=== PATIENT | female | born 1990 | race Caucasian/White ===

== ENCOUNTER 2016-11-01 11:55 | Emergency (ER) | payer OTHER, SELFPAY ==
[~2016-11-01] VITALS: Ht 165.1 cm; Wt 164.3 kg
[2016-11-01] MEDS ORDERED: NS 1,000 ML IV ONE (14:30)
[2016-11-01 15:16] LABS: BASO % 0.4 % (0.0-1.0); EOS # 0.1 10^3/uL (0.0-0.50); EOS % 1.4 % (0.0-3.0); IMMATURE GRANULOCYTE % 0.4 % (0-0); LYMPH # 2.6 10^3/uL (1.5-6.5); LYMPH % 25.6 % (24.0-44.0); MEAN CORPUSCULAR HGB CONC 32.4 g/dl (32.0-36.5); MEAN CORPUSCULAR VOLUME 86.5 fl (80.0-96.0); MONO # 0.4 10^3/uL (0.0-0.8); NEUTROPHILS # 6.9 10^3/uL (1.8-7.7); NEUTROPHILS % 68.2 % (36.0-66.0); PLATELET COUNT, AUTOMATED 348 10^3/uL (150-450); RED CELL DISTRIBUTION WIDTH 15.1 % (11.5-14.5); WHITE BLOOD COUNT 10.1 10^3/uL (4.0-10.0)
--- NOTE | 2016-11-01 15:21 | REP ---
Emergency pelvic ultrasound with transabdominal, endovaginal and Doppler ultrasound assessment: The patient reportedly has polycystic ovarian syndrome and complains of heavy vaginal bleeding for approximate 1 month. There are no comparison studies. The uterus is anteverted and normal size measuring 8.4 x 4.2 x 5.5 cm. The endometrium is not thickened measuring 4.6 mm. No uterine fibroids or masses are identified. The ovaries are normal size. Right ovary measures 3.6 x 2.3 x 2.5 cm. The left ovary measures 3.1 x 2.0 x 2.7 cm. There are multiple small follicles in each ovary. There is no dominant ovarian mass or cyst. There is vascular flow in both ovaries with the Doppler resistive index of the intraparenchymal arteries on the right measuring 0.63 on the left 0.55. There is no free fluid in the pelvis. Impression: Essentially normal pelvic ultrasound. Signed by Hiram Agudelo MD 11/01/2016 03:13 P
[2016-11-01 16:57] LABS: ANION GAP 8 MEQ/L (8-16); BLOOD UREA NITROGEN 13 MG/DL (7-18); CALCIUM LEVEL 8.8 MG/DL (8.5-10.1); CARBON DIOXIDE LEVEL 27 MEQ/L (21-32); CHLORIDE LEVEL 105 MEQ/L (98-107); CREATININE FOR GFR 0.61 MG/DL (0.55-1.02); GLOMERULAR FILTRATION RATE > 60.0 (>60); GLUCOSE, FASTING 77 MG/DL (70-105); POTASSIUM SERUM 4.1 MEQ/L (3.5-5.1); SODIUM LEVEL 140 MEQ/L (136-145)
[2016-11-01 17:04] VITALS: BP 140/85
== END 2016-11-01 17:12 | disposition home or self-care (01) ==
LOC: M ED 11:55
DX: N92.0 Excessive and frequent menstruation with regular cycle (principal); E28.2 Polycystic ovarian syndrome; F41.9 Anxiety disorder, unspecified; Z84.2 Family history of other diseases of the genitourinary system; Z88.8 Allergy status to other drugs, medicaments and biological substances

== ENCOUNTER → 2017-05-30 | Outpatient (CLI) | payer OTHER | LOC: M WUC 13:43 | DX: J20.9 Acute bronchitis, unspecified (principal) | CPT/HCPCS: 71046 ==

== ENCOUNTER → 2017-10-10 | Outpatient (CLI) | payer OTHER | LOC: M ADAMS 11:53 | DX: S90.32XA Contusion of left foot, initial encounter (principal); X58.XXXA Exposure to other specified factors, initial encounter; Y92.59 Other trade areas as the place of occurrence of the external cause | CPT/HCPCS: 73630 ==

== ENCOUNTER → 2018-04-24 | Outpatient (CLI) | payer OTHER ==
[~2018-04-24] MED LIST: FURO20TA2; IBUP40TA PO; LEVONOR/ETHI
--- NOTE | 2018-04-25 04:13 | REP ---
Clinical: Right knee pain Technique: AP, lateral, bilateral oblique and sunrise views. Findings: The osseous structures and joint spaces are intact and normal. There is no evidence for acute fracture or dislocation. No joint effusion is appreciated. Surrounding soft tissues are unremarkable. No subcutaneous emphysema or radiodense foreign body. Impression: Normal examination. No acute fracture or dislocation. Electronically Signed by Cole Galicia MD 04/25/2018 04:05 A
== END ==
LOC: M ADAMS 12:04
PROVIDERS: ATTEND Physician Assistant Medical
DX: M25.561 Pain in right knee (principal)

== ENCOUNTER 2018-04-26 10:39 | Emergency (ER) | payer OTHER ==
[~2018-04-26] VITALS: Ht 170.2 cm; Wt 154.5 kg
[2018-04-26 10:40] VITALS: BP 127/80
[2018-04-26] MEDS ORDERED: LEVONOR/ETHI (10:48)
[2018-04-26] MEDS ORDERED: IBUP40TA PO (10:48)
[2018-04-26] MEDS ORDERED: FURO20TA2 (10:48)
== END 2018-04-26 11:28 | disposition home or self-care (01) ==
LOC: M ED 10:39
DX: S83.91XA Sprain of unspecified site of right knee, initial encounter (principal); X50.1XXA Overexertion from prolonged static or awkward postures, initial encounter; Y92.098 Other place in other non-institutional residence as the place of occurrence of the external cause; Z88.8 Allergy status to other drugs, medicaments and biological substances; Z79.899 Other long term (current) drug therapy

== ENCOUNTER 2018-10-01 21:17 | Emergency (ER) | payer OTHER ==
[~2018-10-01] VITALS: Ht 170.2 cm; Wt 152.2 kg
[2018-10-02 01:13] VITALS: BP 167/97
== END 2018-10-02 01:14 | disposition home or self-care (01) ==
LOC: M ED 21:17
DX: S10.96XA Insect bite of unspecified part of neck, initial encounter (principal); W57.XXXA Bitten or stung by nonvenomous insect and other nonvenomous arthropods, initial encounter; Y92.9 Unspecified place or not applicable; Y93.9 Activity, unspecified; Y99.9 Unspecified external cause status; E28.2 Polycystic ovarian syndrome; G43.909 Migraine, unspecified, not intractable, without status migrainosus; Z79.899 Other long term (current) drug therapy; Z88.8 Allergy status to other drugs, medicaments and biological substances

== ENCOUNTER → 2019-06-13 | Outpatient (CLI) | payer OTHER ==
[~2019-06-13] MED LIST changes: +ISOVUE-370 76% 100ML VIAL As Ordered ONE
--- NOTE | 2019-06-13 15:00 | REP ---
CT BRAIN WITHOUT AND WITH IV CONTRAST: HISTORY: Headache syndrome. Rule out mass. Comparison head CT study June 12, 2015. CT CONTRAST DOSE: 75 mL of intravenous Isovue [address] FINDINGS: Digital preliminary emery grinder radiograph is unremarkable. Bone window settings demonstrate an intact bony calvarium. Visualized paranasal sinuses are clear. No intraorbital abnormalities appreciated. On soft tissue window settings, odonnell-white differentiation pattern is normal above and below the tentorium. Lateral, third, fourth ventricles are normal in size and position. There is no evidence of intracranial mass lesion. Contrast enhanced study shows enhancement in normal vasculature. No abnormal intracranial contrast enhancement is seen. There is no evidence of infarct, hemorrhage, mass, extra-axial fluid collection, or midline shift. IMPRESSION: Negative CT study brain without and with IV contrast. Electronically Signed by Job Rice MD 06/13/2019 03:34 P
== END ==
LOC: M RAD 13:26
PROVIDERS: ATTEND Nurse Practitioner Family
DX: R51 Headache (principal)
CPT/HCPCS: 70470; Q9967

== ENCOUNTER 2020-08-25 12:54 | Emergency (ER) | payer OTHER ==
[~2020-08-25] VITALS: Ht 170.2 cm; Wt 155.0 kg
[~2020-08-25 12:54] MED LIST changes: +IBUP1TAB5 PO; -IBUP40TA PO; -ISOVUE-370 76% 100ML VIAL As Ordered ONE
[2020-08-25] MEDS ORDERED: LEVO0.1T (13:07)
[2020-08-25] MEDS ORDERED: ACET50CA PO (13:07)
[2020-08-25] MEDS ORDERED: CYCL5TAB PO (13:08)
[2020-08-25] MEDS ORDERED: SUMA25TA3 PO (13:08)
[2020-08-25] MEDS ORDERED: PROP20TA72 PO (16:31)
[2020-08-25 17:18] LABS: BASO % 0.3 % (0.0-1.0); EOS # 0.2 10^3/uL (0.0-0.5); HEMATOCRIT 44.3 % (36.0-47.0); LYMPH # 2.4 10^3/uL (1.5-5.0); LYMPH % 19.6 % (24.0-44.0); MEAN CORPUSCULAR HEMOGLOBIN 27.4 pg (27.0-33.0); MEAN CORPUSCULAR HGB CONC 31.6 g/dl (32.0-36.5); MEAN CORPUSCULAR VOLUME 86.7 fl (80.0-96.0); MONO # 0.6 10^3/uL (0.0-0.8); MONO % 4.6 % (2.0-8.0); NEUTROPHILS % 73.2 % (36.0-66.0); PLATELET COUNT, AUTOMATED 404 10^3/uL (150-450); RED BLOOD COUNT 5.11 10^6/uL (4.00-5.40); WHITE BLOOD COUNT 12.3 10^3/uL (4.0-10.0)
--- NOTE | 2020-08-25 17:43 | REP ---
INDICATION: ruq pain, nausea. COMPARISON: None. TECHNIQUE: Standard right upper quadrant sonographic techniques were utilized. FINDINGS: The liver is shows a homogeneous hyperechogenicity consistent with fatty infiltration has a vertical diameter of 21.8 cm in the midclavicular line indicating hepatomegaly. Contours are smooth the left hepatic lobe is not grossly enlarged. Gallbladder shows wall thickness of 4 mm there is no definite shadowing stones or sludge. No pericholecystic fluid is seen. There is no mass. No sonographic Kern sign was described. Common duct is 4 mm without a stone. Limited views of the pancreas show no ductal dilatation in the region of the pancreatic head. Pancreas is slightly echogenic. Some of the pancreatic tail is obscured by gas shadowing. The right kidney is 10.8 x 6.3 x 4.4 cm. No hydronephrosis. No generalized ascites in the upper abdomen. IMPRESSION: Fatty infiltration of the liver with hepatomegaly but no biliary dilatation or ascites. No hepatic mass. Gallbladder without calcified stone, mass or pericholecystic fluid wall is slightly thickened at 4 mm. No sonographic Kern sign. Common duct 4 mm without a filling defect. Pancreatic head and body without acute finding there are slightly hyperechoic. The tail is partially obscured by gas shadowing. Right kidney grossly unremarkable <Electronically signed by Brennna Sargent > 08/25/20 [id number]
[2020-08-25 17:49] LABS: ALBUMIN 3.5 GM/DL (3.2-5.2); ALT/SGPT 28 U/L (12-78); BILIRUBIN,DIRECT 0.1 MG/DL (0.0-0.2); BILIRUBIN,TOTAL 0.4 MG/DL (0.2-1.0); BLOOD UREA NITROGEN 14 MG/DL (7-18); CARBON DIOXIDE LEVEL 26 MEQ/L (21-32); CHLORIDE LEVEL 108 MEQ/L (98-107); CREATININE FOR GFR 0.65 MG/DL (0.55-1.30); GLOMERULAR FILTRATION RATE > 60.0 (>60); GLUCOSE, FASTING 83 MG/DL (70-100); LIPASE 87 U/L (73-393); POTASSIUM SERUM 4.2 MEQ/L (3.5-5.1); SODIUM LEVEL 139 MEQ/L (136-145); TOTAL PROTEIN 7.4 GM/DL (6.4-8.2)
--- NOTE | 2020-08-25 17:50 | REP ---
INDICATION: nausea, hx PCOS, r pelvic pain. COMPARISON: 11/01/2016 TECHNIQUE: Transabdominal and endovaginal probe exams are provided. Color flow and Doppler imaging of the adnexa were also performed. FINDINGS: Bladder partially filled the at 6 x 6.9 x 3 cm. Uterus is anteverted in it measures 7.5 x 3.7 x 4.3 cm. There is a central endometrial echogenic stripe with a thickness of 7 mm. No fluid in the endometrial cavity or endocervical canal. No uterine mass or contour abnormality suggested. There is no fluid in the cul-de-sac. The left ovary is 2.7 x 1.9 x 2.9 cm on the ED probe as a few subcentimeter follicles. Color flow is seen within it Doppler tracing shows resistive index 0.44, normal. No adjacent fluid or mass to the left ovary. The right ovary is larger at 4.3 x 2.2 x 1.8 cm. It also shows color flow within it and Doppler tracing with resistive index of 0.38. Within that right ovary is a complex hypoechoic focus 1.6 x 1.2 x 0.8 cm there is some internal echoes but no definite color flow within. Septation is suggested within it. IMPRESSION: 1. Complex ovarian follicle on the right 1.6 x 1.2 x 0.8 cm. It has some septations and internal echoes and may reflect hemorrhagic follicle or resolving hemorrhagic cyst. There is color flow in the ovary but not definitely in this focus. No torsion. 2. Left ovary, uterus, endometrial stripe and the cul-de-sac were unremarkable. There is no pelvic free fluid. <Electronically signed by Brennan Sargent > 08/25/20 [id number]
[2020-08-25 18:25] VITALS: BP 133/93
== END 2020-08-25 18:26 | disposition home or self-care (01) ==
LOC: M ED 12:54
DX: N83.01 Follicular cyst of right ovary (principal); R11.0 Nausea; K76.0 Fatty (change of) liver, not elsewhere classified; G43.909 Migraine, unspecified, not intractable, without status migrainosus; E28.2 Polycystic ovarian syndrome; Z87.440 Personal history of urinary (tract) infections; R60.0 Localized edema; Z79.899 Other long term (current) drug therapy

== ENCOUNTER 2022-10-18 11:53 | Day surgery (SDC) | payer OTHER ==
[~2022-10-18] VITALS: Ht 167.6 cm; Wt 159.2 kg
[~2022-10-18 11:53] MED LIST changes: +ACET50CA PO; +CETI-24 PO; +CYCL5TAB PO; +LEVO0.1T; +NS 1,000 ML IV ONE; +OMEP-173 PO; +PROP20TA72 PO; +SEMA1PEN2; +SUMA25TA3 PO; +[UNRECOGNIZED DRUG - OTHER] PO
[2022-10-18 12:12] VITALS: TEMP 96.1
[2022-10-18] MEDS ORDERED: propofoL 200 MG/20 ML VIAL As Ordered ONE ×4 (12:58→13:19)
[2022-10-18] MEDS ORDERED: LIDOCAINE 2% 100MG/5ML SDV (FOR ANES.) As Ordered ONE (12:58)
[2022-10-18 13:49] VITALS: BP 105/53; O2SAT 100
== END 2022-10-18 13:56 | disposition home or self-care (01) ==
LOC: M OPP 11:53
PROVIDERS: ATTEND Internal Medicine Gastroenterology
DX: K64.8 Other hemorrhoids (principal); K20.90 Esophagitis, unspecified without bleeding; E78.5 Hyperlipidemia, unspecified; K21.9 Gastro-esophageal reflux disease without esophagitis; M19.90 Unspecified osteoarthritis, unspecified site; F41.9 Anxiety disorder, unspecified; G43.909 Migraine, unspecified, not intractable, without status migrainosus; J45.909 Unspecified asthma, uncomplicated; E28.2 Polycystic ovarian syndrome; G93.2 Benign intracranial hypertension; E66.9 Obesity, unspecified; E83.119 Hemochromatosis, unspecified; Z88.8 Allergy status to other drugs, medicaments and biological substances; Z91.09 Other allergy status, other than to drugs and biological substances; Z79.899 Other long term (current) drug therapy; Z83.3 Family history of diabetes mellitus; Z82.49 Family history of ischemic heart disease and other diseases of the circulatory system; Z80.3 Family history of malignant neoplasm of breast; Z80.1 Family history of malignant neoplasm of trachea, bronchus and lung; Z80.42 Family history of malignant neoplasm of prostate; Z83.6 Family history of other diseases of the respiratory system

== ENCOUNTER → 2023-05-03 | Outpatient (CLI) | payer OTHER ==
[~2023-05-03] MED LIST changes: -NS 1,000 ML IV ONE
== END ==
LOC: M SLEEP 20:00
PROVIDERS: ATTEND Nurse Practitioner Family
DX: R40.0 Somnolence (principal)

== ENCOUNTER 2024-10-02 09:35 | Emergency (ER) | payer OTHER ==
[~2024-10-02] VITALS: Ht 165.1 cm; Wt 177.1 kg
[2024-10-02 09:37] VITALS: BP 140/86; TEMP 98; O2SAT 100
== END 2024-10-02 09:56 | disposition left against medical advice (07) ==
LOC: M ED 09:35
DX: Z53.21 Procedure and treatment not carried out due to patient leaving prior to being seen by health care provider (principal)

== ENCOUNTER → 2024-10-02 | Outpatient (CLI) | payer OTHER ==
[~2024-10-02] MED LIST changes: -CYCL5TAB PO; +CYCL5TAB4 PO
== END ==
LOC: M RAD 10:22
PROVIDERS: ATTEND Physician Assistant
DX: R22.41 Localized swelling, mass and lump, right lower limb (principal)

== ENCOUNTER 2024-11-02 11:07 | Emergency (ER) | payer OTHER ==
[~2024-11-02] VITALS: Ht 165.1 cm; Wt 172.3 kg
[2024-11-02 12:49] VITALS: BP 119/74; TEMP 97.1; O2SAT 96
== END 2024-11-02 12:51 | disposition home or self-care (01) ==
LOC: M ED 11:07
DX: M25.571 Pain in right ankle and joints of right foot (principal); Z88.8 Allergy status to other drugs, medicaments and biological substances; Z91.09 Other allergy status, other than to drugs and biological substances; Z79.1 Long term (current) use of non-steroidal anti-inflammatories (NSAID); Z79.899 Other long term (current) drug therapy; Z79.4 Long term (current) use of insulin